=== PATIENT | male | born 1965 | race Caucasian/White ===

== ENCOUNTER 2016-10-20 18:10 | Inpatient (IN) | payer BC ==
[~2016-10-20] VITALS: Ht 177.8 cm; Wt 99.9 kg
[2016-10-20] MEDS ORDERED: ONDANSETRON INJ 2 MG/ML 2 ML VIAL IV STA (18:21)
[2016-10-20] MEDS ORDERED: SODIUM CHLORIDE 0.9% 1000ML 1,000 ML IV STA (18:21)
[2016-10-20] MEDS ORDERED: ASPIRIN 81 MG CHEW PO STA (18:21)
--- NOTE | 2016-10-20 18:29 | EMERGENCY ROOM VISIT NOTE ---
History Report prepared by Emma: Janelle Dudley Under the Supervision of: Dr. Bruce Lozano D.O. First contact with patient: 18:15 Chief Complaint: CHEST PAIN Stated Complaint: CHEST PAIN, HEAD PAIN History of Present Illness The patient is a 51 year old male who presents to the Emergency Room with complaints of constant chest pain beginning 1 hour ago. The patient states that he was cutting trees down and was moving limbs when the pain began. He notes that he was exerting himself and was sweating. He reports that the pain radiates from his chest into his right arm and notes that he has a right sided head ache. He denies any neck pain, back pain, shortness of breath, leg pain or swelling, recent procedures, recent traveling, and history of stress test. He notes that he has no known medical history and has no previous surgeries or history of cancer. The patient reports that he has fluctuating blood pressure but is not on medications. Source of History: patient Onset: 1 hour ago Position: chest Timing: constant Associated Symptoms: + headache, No SOB, No back pain, No neck pain Note: Pt has right arm pain. Denies any leg pain or swelling. Review of Systems See HPI for pertinent positives & negatives. A total of 10 systems reviewed and were otherwise negative. Past Medical & Surgical Medical Problems: (1) Chest pain in adult (2) No Known Active Medical Problems Family History No pertinent family history stated. Social History Smoking Status: Current Every Day Smoker Marital Status: Housing Status: lives with significant other Occupation Status: employed Current/Historical Medications No Active Prescriptions or Reported Meds Allergies Coded Allergies: Penicillins (Verified Allergy, Unknown, 06/29/09) Physical Exam Vital Signs Date Time Temp Pulse Resp B/P Pulse Ox O2 Delivery O2 Flow Rate FiO2 10/20/16 20:13 78 18 136/92 94 Room Air 10/20/16 19:42 92 17 145/93 94 Room Air 10/20/16 19:39 83 18 150/100 97 Room Air 10/20/16 19:09 85 10/20/16 18:58 84 20 160/104 95 Room Air 10/20/16 18:31 96 Room Air 10/20/16 18:31 96 Room Air 10/20/16 18:11 36.7 95 18 144/98 96 Room Air Physical Exam GENERAL: Patient is awake, alert, very anxious appearing, appears to be in pain. EYES: The conjunctivae are clear. The pupils are round and reactive. EARS, NOSE, MOUTH AND THROAT: The nose is without any evidence of any deformity. Mucous membranes are moist tongue is midline NECK: The neck is nontender and supple. RESPIRATORY: Normal respiratory effort is noted there is no evidence of wheezing rhonchi or rales CARDIOVASCULAR: Regular rate and rhythm noted there no murmurs rubs or gallops normal S1 normal S2 GASTROINTESTINAL: The abdomen is soft. Bowel sounds are present in all quadrants. Abdomen is nontender MUSCULOSKELETAL/EXTREMITIES: There is no evidence of gross deformity full range of motion is noted in the hips and shoulders SKIN: There is no obvious evidence of any rash. There are no petechiae, pallor or cyanosis noted. Pulses were symmetric. NEUROLOGIC: Patient is awake alert and oriented x3 Medical Decision & Procedures ER Provider Diagnostic Interpretation: Radiology results as stated below per my review and radiologist interpretation: CHEST ONE VIEW PORTABLE FINDINGS: The lung volumes are normal. No pneumothorax or pleural effusion is present. Minimal left basilar opacity suggests atelectasis. There is no consolidation to suggest pneumonia. Pulmonary vascularity is normal. Cardiomediastinal silhouette is normal. IMPRESSION: No acute cardiopulmonary findings. Electronically signed by: Adalid Diallo M.D. 10/20/2016 6:44 PM Dictated Date/Time: 10/20/2016 6:[address] OF THE HEAD WITHOUT CONTRAST FINDINGS: No acute intracranial hemorrhage, midline shift or mass effect is present. Brain volume is normal. Ventricular system is normal. Basilar cisterns are patent. There are no extra-axial collections. Wilson-white differentiation is maintained. There are no findings to suggest acute dural sinus thrombosis or acute territorial infarct. There is minimal bilateral basal ganglia calcification. No calvarial abnormalities are evident. There is minimal mucosal thickening of the ethmoid sinuses. Mastoid air cells are clear. IMPRESSION: No acute intracranial findings. Electronically signed by: Adalid Diallo M.D. 10/20/2016 6:58 PM Dictated Date/Time: 10/20/2016 6:53 PM Laboratory Results 10/20/16 18:30 Red Blood Count 5.48, Mean Corpuscular Volume 89.6, Mean Corpuscular Hemoglobin 30.5, Mean Corpuscular Hemoglobin Concent 34.0, Mean Platelet Volume 9.2, Neutrophils (%) (Auto) 76.2, Lymphocytes (%) (Auto) 15.1, Monocytes (%) (Auto) 7.3, Eosinophils (%) (Auto) 0.7, Basophils (%) (Auto) 0.3, Neutrophils # (Auto) 13.75, Lymphocytes # (Auto) 2.72, Monocytes # (Auto) 1.32, Eosinophils # (Auto) 0.12, Basophils # (Auto) 0.05 10/20/16 18:30 Test 10/20/16 18:30 10/20/16 19:59 White Blood Count 18.04 K/uL (4.8-10.8) Red Blood Count 5.48 M/uL (4.7-6.1) Hemoglobin 16.7 g/dL (14.0-18.0) Hematocrit 49.1 % (42-52) Mean Corpuscular Volume 89.6 fL (80-100) Mean Corpuscular Hemoglobin 30.5 pg (25-34) Mean Corpuscular Hemoglobin Concent 34.0 g/dl (32-36) Platelet Count 311 K/uL (130-400) Mean Platelet Volume 9.2 fL (7.4-10.4) Neutrophils (%) (Auto) 76.2 % Lymphocytes (%) (Auto) 15.1 % Monocytes (%) (Auto) 7.3 % Eosinophils (%) (Auto) 0.7 % Basophils (%) (Auto) 0.3 % Neutrophils # (Auto) 13.75 K/uL (1.4-6.5) Lymphocytes # (Auto) 2.72 K/uL (1.2-3.4) Monocytes # (Auto) 1.32 K/uL (0.11-0.59) Eosinophils # (Auto) 0.12 K/uL (0-0.5) Basophils # (Auto) 0.05 K/uL (0-0.2) RDW Standard Deviation 43.8 fL (36.4-46.3) RDW Coefficient of Variation 13.4 % (11.5-14.5) Immature Granulocyte % (Auto) 0.4 % Immature Granulocyte # (Auto) 0.08 K/uL (0.00-0.02) Erythrocyte Sedimentation Rate 10 mm/hr (0-14) Prothrombin Time 11.3 SECONDS (9.0-12.0) Prothromb Time International Ratio 1.1 (0.9-1.1) Activated Partial Thromboplast Time 25.2 SECONDS (21.0-31.0) Partial Thromboplastin Ratio 1.0 D-Dimer 320 ug/L FEU (0-500) Anion Gap 9.0 mmol/L (3-11) Est Creatinine Clear Calc Drug Dose 80.1 ml/min Estimated GFR () 73.7 Estimated GFR (Non- 63.6 BUN/Creatinine Ratio 14.8 (10-20) Calcium Level 9.0 mg/dl (8.5-10.1) Total Bilirubin 0.5 mg/dl (0.2-1) Direct Bilirubin < 0.1 mg/dl (0-0.2) Aspartate Amino Transf (AST/SGOT) 26 U/L (15-37) Alanine Aminotransferase (ALT/SGPT) 38 U/L (12-78) Alkaline Phosphatase 82 U/L (45-117) Total Creatine Kinase 435 U/L (39-308) Creatine Kinase MB 3.0 ng/ml (0.5-3.6) Creatine Kinase MB Ratio 0.7 (0-3.0) Troponin I < 0.015 ng/ml (0-0.045) Total Protein 8.0 gm/dl (6.4-8.2) Albumin 4.4 gm/dl (3.4-5.0) Lipase 156 U/L (73-393) Lyme Disease IgG Antibody NEG (NEG) Lyme Disease IgM Antibody NEG (NEG) Bedside Troponin I 0.040 ng/ml (0-0.045) Laboratory results per my review. Medications Administered Medications (Trade) Dose Ordered Sig/Thi Route Start Time Stop Time Status Last Admin Dose Admin Aspirin (Aspirin Chew) 324 mg NOW STAT PO 10/20/16 18:21 10/20/16 18:23 DC 10/20/16 18:34 324 MG Morphine Sulfate (MoRPHine SULFATE INJ) 4 mg Q15M PRN IV 10/20/16 18:30 10/20/16 21:21 DC 10/20/16 18:33 4 MG Ondansetron HCl 4 mg 4 mg NOW STAT IV 10/20/16 18:21 10/20/16 18:23 DC 10/20/16 18:33 4 MG Sodium Chloride (Nss 1000ml) 1,000 ml @ 250 mls/hr Q4H STAT IV 10/20/16 18:21 10/20/16 22:20 DC 10/20/16 18:34 250 MLS/HR Nitroglycerin (Nitrostat Tab) 0.4 mg Q5M PRN SL 10/20/16 19:45 10/20/16 21:43 DC 10/20/16 19:39 0.4 MG ECG Indication: chest pain Rate (beats per minute): 84 Rhythm: normal sinus Findings: no ectopy, other (no st segment abnormalities) Comparison ECG Date: 12/27/10 Change: no significant change Change: EKG#2: Normal Sinus, 76, no ectopy, no ST segment abnormalities, no change when compared to previous. ED Course 1814: The patient was evaluated in room C3. A complete history and physical examination were performed. 1820: NSS 1,000 ml @ 250 mls/hr IV, Zofran Inj 4mg IV, Aspirin Chew 324mg PO. 1829: Morphine Sulfate 4mg PRN IV pain. 1944: Nitroglycerin 0.4mg PRN SL pain. 1958: I reevaluated the patient. He feels better after NTG. 1920: I reevaluated and updated the patient. 2031: I spoke to Dr. Lloyd of [facility]. I discussed the patient's case with her. The patient will be evaluated for further management. 2054: Upon reevaluation, the patient is doing well. I discussed results and treatment plan with the patient. He verbalizes agreement and understanding. I spoke with the resident, Dr. Lloyd of the [facility]. The patient will be evaluated for further management and care. Medical Decision Differential diagnosis: Etiologies such as cardiac ischemia, aortic dissection, pulmonary embolism, pneumonia, pneumothorax, musculoskeletal, infections, pericarditis, myocarditis , esophageal rupture, gastrointestinal, as well as others were entertained. Nursing notes reviewed. The patient is a 51-year-old male who presented to the emergency department for an evaluation of chest pain after exertional activity. The patient's EKG did not show any acute change from previous. His initial troponin was not elevated but his repeat troponin did show a slight elevation. The patient was treated with aspirin and nitroglycerin and morphine in saline solution in the emergency department. On subsequent reevaluation he was feeling much better. I discussed the patient's laboratory and radiographic studies with him. I also discussed the limitations of the emergency department workup for chest pain with him. Given the patient's abnormal laboratory studies I discussed his case with the on -call [facility] hospitalist group. They've agreed to evaluate the patient in the emergency apartment for further management and disposition. Consults Time Called: 2029 Consulting Physician: Dr. Lloyd - Resident, [facility] Returned Call: [address] Lloyd of [facility]. I discussed the patient's case with her. The patient will be evaluated for further management. Impression Primary Impression: Exertional chest pain Additional Impressions: Left sided chest pain Elevated troponin Headache Scribe Attestation The scribe's documentation has been prepared under my direction and personally reviewed by me in its entirety. I confirm that the note above accurately reflects all work, treatment, procedures, and medical decision making performed by me. Departure Information Prescriptions No Active Prescriptions or Reported Meds Referrals Rudolph Kim M.D. (PCP) Patient Instructions My [facility] Problem Qualifiers
[2016-10-20] MEDS ORDERED: MoRPHine SULFATE 4 MG/ML 1 ML CARP\\VIAL IV PRN (18:30)
[2016-10-20 18:42] LABS: BASO % 0.3 %; BASO ABS # 0.05 K/uL (0-0.2); COMPLETE YES; EOS % 0.7 %; HEMATOCRIT 49.1 % (42-52); IG% 0.4 %; LYMPH % 15.1 %; LYMPH ABS # 2.72 K/uL (1.2-3.4); MEAN CELL VOLUME 89.6 fL (80-100); MEAN CORPUSCULAR HEMOGLOBIN 30.5 pg (25-34); MEAN PLATELET VOLUME 9.2 fL (7.4-10.4); MONO % 7.3 %; NEUT % 76.2 %; PLATELET COUNT 311 K/uL (130-400); RED BLOOD COUNT 5.48 M/uL (4.7-6.1); WHITE BLOOD COUNT 18.04 K/uL (4.8-10.8)
--- NOTE | 2016-10-20 18:45 | DIAGNOSTIC IMAGING REPORT ---
CHEST ONE VIEW PORTABLE CLINICAL HISTORY: Chest pain. COMPARISON STUDY: Chest radiograph December 27, 2010. FINDINGS: The lung volumes are normal. No pneumothorax or pleural effusion is present. Minimal left basilar opacity suggests atelectasis. There is no consolidation to suggest pneumonia. Pulmonary vascularity is normal. Cardiomediastinal silhouette is normal. IMPRESSION: No acute cardiopulmonary findings. Electronically signed by: Adalid Diallo M.D. 10/20/2016 6:44 PM Dictated Date/Time: 10/20/2016 6:42 PM
[2016-10-20 18:51] LABS: INR 1.1 (0.9-1.1); PROTHROMBIN TIME (PATIENT) 11.3 SECONDS (9.0-12.0)
[2016-10-20 18:59] LABS: ALT/SGPT 38 U/L (12-78); AST/SGOT 26 U/L (15-37); BLOOD UREA NITROGEN 19 mg/dl (7-18); BUN/CREATININE RATIO 14.8 (10-20); CARBON DIOXIDE 23 mmol/L (21-32); CHLORIDE 108 mmol/L (98-107); GLUCOSE 130 mg/dl (70-99); POTASSIUM 4.2 mmol/L (3.5-5.1); SODIUM 140 mmol/L (136-145)
--- NOTE | 2016-10-20 18:59 | DIAGNOSTIC IMAGING REPORT ---
CT OF THE HEAD WITHOUT CONTRAST CLINICAL HISTORY: Right-sided headache. COMPARISON STUDY: No previous studies for comparison. CT DOSE: 537.48 mGy.cm TECHNIQUE: Helical axial images of the head were obtained without IV contrast. Automated exposure control was utilized for the study. FINDINGS: No acute intracranial hemorrhage, midline shift or mass effect is present. Brain volume is normal. Ventricular system is normal. Basilar cisterns are patent. There are no extra-axial collections. Wilson-white differentiation is maintained. There are no findings to suggest acute dural sinus thrombosis or acute territorial infarct. There is minimal bilateral basal ganglia calcification. No calvarial abnormalities are evident. There is minimal mucosal thickening of the ethmoid sinuses. Mastoid air cells are clear. IMPRESSION: No acute intracranial findings. Electronically signed by: Adalid Diallo M.D. 10/20/2016 6:58 PM Dictated Date/Time: 10/20/2016 6:53 PM
[2016-10-20 19:05] LABS: ALKALINE PHOSPHATASE 82 U/L (45-117); CKMB/CK RATIO 0.7 (0-3.0)
[2016-10-20] MEDS ORDERED: NITROGLYCERIN 0.4 MG SL PER TAB CHARGE SL PRN ×2 (19:45→21:15)
[2016-10-20] MEDS ORDERED: ONDANSETRON INJ 2 MG/ML 2 ML VIAL IV PRN (21:15)
[2016-10-20] MEDS ORDERED: POLYETHYLENE (MIRALAX) 17 GM PACK PO PRN (21:15)
[2016-10-20] MEDS ORDERED: MoRPHine SULFATE 2 MG/ML CARP IV PRN (21:15)
[2016-10-20] MEDS ORDERED: ZOLPIDEM TARTRATE 5 MG TAB PO PRN (21:15)
[2016-10-20 21:44] VITALS: Ht 177.8 cm; Wt 99.9 kg
[2016-10-20] MEDS ORDERED: IV FLUIDS COMPLETED PRN (21:45)
[2016-10-20] MEDS ORDERED: HEPARIN 25000 UNIT/500 ML D5W ONE (21:46)
[2016-10-20 21:59] VITALS: O2SAT 93
[2016-10-20] MEDS: SODIUM CHLORIDE 0.9% 1000ML 1,000 ML IV SCH (22:30)
--- NOTE | 2016-10-20 22:33 | History and Physical ---
History & Physical Date & Time of Service: October 20, 2016 at 22:21 Chief Complaint: Chest Pain In Adult Primary Care Physician: Rudolph Kim M.D. History of Present Illness Source: patient, clinic records, hospital records This is a 51 yo m that is presenting to us after an acute onset of substernal chest pain and right sided temporal pain. The chest pain started at approx 1600 when he was working outside chopping wood. It started substernally and radiated to the left arm and to the left pinky and ring finger. It was a sharp pain that worsened with laying down and a 9/10. It is currently a 0/10 after receiving NTG x 1 and morphine. He did received ASA in the ED. During this episode of pain he was having right temporal pain and hypoesthesia without blurry vision. The pain was constant until he arrived to the ED and received his medications. He notes that while he was at home he tried to shower but was consistently diaphoretic however no nausea. He had pain like this before a year ago that he "waited out" but felt like he shouldn't wait this one out. Patient smokes 1 PPD > 30 years. He has never had an MA/ TIA or stroke. His father has a history of stroke secondary to a "hole in his heart" as well as DM. Past Medical/Surgical History no significant PMHx Family History Diabetes mellitus FATHER Stroke FATHER Social History Smoking Status: Current Every Day Smoker Smokeless Tobacco Use: No Alcohol Use: occasionally Drug Use: none Marital Status: Housing status: lives with family Occupational Status: employed Immunizations History of Tetanus Vaccine?: YES,08/17/04 History of Pneumococcal: No History of Hepatitis B Vaccine: No Multi-Drug Resistant Organisms History of MDRO: No Allergies Coded Allergies: Penicillins (Verified Allergy, Unknown, 06/29/09) Home Medications No Active Prescriptions or Reported Meds Review of Systems Constitutional: No chills, No fever Respiratory: No cough, No dyspnea at rest, No dyspnea on exertion, No shortness of breath, No sputum, No wheezing Cardiovascular: + chest pain Abdomen: No diarrhea, No nausea, No pain Musculoskeletal: No joint pain, No muscle pain Genitourinary - Male: No dysuria, No hematuria Neurologic: + numbness/tingling (asd above), No balance problems, No weakness Psychiatric: No depression symptoms Endocrine: No fatigue Hematologic / Lymphatic: No abnormal bleeding/bruising Integumentary: No rash Physical Exam Vital Signs Date Time Temp Pulse Resp B/P Pulse Ox O2 Delivery O2 Flow Rate FiO2 10/20/16 21:59 76 18 147/87 93 10/20/16 21:44 Room Air 10/20/16 21:16 86 18 148/90 95 Room Air 10/20/16 20:13 78 18 136/92 94 Room Air 10/20/16 19:42 92 17 145/93 94 Room Air 10/20/16 19:39 83 18 150/100 97 Room Air 10/20/16 19:09 85 10/20/16 18:58 84 20 160/104 95 Room Air 10/20/16 18:31 96 Room Air 10/20/16 18:31 96 Room Air 10/20/16 18:11 36.7 95 18 144/98 96 Room Air General Appearance: no apparent distress Head: normocephalic, atraumatic Eyes: normal inspection ENT: normal ENT inspection Neck: supple Respiratory/Chest: normal breath sounds, no respiratory distress, no accessory muscle use Cardiovascular: regular rate, rhythm, no murmur Abdomen/GI: normal bowel sounds, non tender, soft Back: normal inspection Extremities/Musculoskelatal: normal inspection, no calf tenderness, no pedal edema Neurologic/Psych: alert, normal mood/affect, oriented x 3 Skin: normal color, warm/dry, no rash Lymphatic: no adenopathy Diagnostics Laboratory Results Results Past 24 Hours Test 10/20/16 18:30 10/20/16 19:59 Range/Units White Blood Count 18.04 4.8-10.8 K/uL Red Blood Count 5.48 4.7-6.1 M/uL Hemoglobin 16.7 14.0-18.0 g/dL Hematocrit 49.1 42-52 % Mean Corpuscular Volume 89.6 80-100 fL Mean Corpuscular Hemoglobin 30.5 25-34 pg Mean Corpuscular Hemoglobin Concent 34.0 32-36 g/dl Platelet Count 311 130-400 K/uL Mean Platelet Volume 9.2 7.4-10.4 fL Neutrophils (%) (Auto) 76.2 % Lymphocytes (%) (Auto) 15.1 % Monocytes (%) (Auto) 7.3 % Eosinophils (%) (Auto) 0.7 % Basophils (%) (Auto) 0.3 % Neutrophils # (Auto) 13.75 1.4-6.5 K/uL Lymphocytes # (Auto) 2.72 1.2-3.4 K/uL Monocytes # (Auto) 1.32 0.11-0.59 K/uL Eosinophils # (Auto) 0.12 0-0.5 K/uL Basophils # (Auto) 0.05 0-0.2 K/uL RDW Standard Deviation 43.8 36.4-46.3 fL RDW Coefficient of Variation 13.4 11.5-14.5 % Immature Granulocyte % (Auto) 0.4 % Immature Granulocyte # (Auto) 0.08 0.00-0.02 K/uL Prothrombin Time 11.3 9.0-12.0 SECONDS Prothromb Time International Ratio 1.1 0.9-1.1 Activated Partial Thromboplast Time 25.2 21.0-31.0 SECONDS Partial Thromboplastin Ratio 1.0 D-Dimer 320 0-500 ug/L FEU Sodium Level 140 136-145 mmol/L Potassium Level 4.2 3.5-5.1 mmol/L Chloride Level 108 98-107 mmol/L Carbon Dioxide Level 23 21-32 mmol/L Anion Gap 9.0 3-11 mmol/L Blood Urea Nitrogen 19 7-18 mg/dl Creatinine 1.30 0.60-1.40 mg/dl Est Creatinine Clear Calc Drug Dose 80.1 ml/min Estimated GFR () 73.7 Estimated GFR (Non- 63.6 BUN/Creatinine Ratio 14.8 10-20 Random Glucose 130 70-99 mg/dl Calcium Level 9.0 8.5-10.1 mg/dl Total Bilirubin 0.5 0.2-1 mg/dl Direct Bilirubin < 0.1 0-0.2 mg/dl Aspartate Amino Transf (AST/SGOT) 26 15-37 U/L Alanine Aminotransferase (ALT/SGPT) 38 12-78 U/L Alkaline Phosphatase 82 45-117 U/L Total Creatine Kinase 435 39-308 U/L Creatine Kinase MB 3.0 0.5-3.6 ng/ml Creatine Kinase MB Ratio 0.7 0-3.0 Troponin I < 0.015 0-0.045 ng/ml Total Protein 8.0 6.4-8.2 gm/dl Albumin 4.4 3.4-5.0 gm/dl Lipase 156 73-393 U/L Bedside Troponin I 0.040 0-0.045 ng/ml Diagnostic Radiology [~ rep ct add3]] CHEST ONE VIEW PORTABLE CLINICAL HISTORY: Chest pain. COMPARISON STUDY: Chest radiograph December 27, 2010. FINDINGS: The lung volumes are normal. No pneumothorax or pleural effusion is present. Minimal left basilar opacity suggests atelectasis. There is no consolidation to suggest pneumonia. Pulmonary vascularity is normal. Cardiomediastinal silhouette is normal. IMPRESSION: No acute cardiopulmonary findings. CT OF THE HEAD WITHOUT CONTRAST CLINICAL HISTORY: Right-sided headache. COMPARISON STUDY: No previous studies for comparison. CT DOSE: 537.48 mGy.cm TECHNIQUE: Helical axial images of the head were obtained without IV contrast. Automated exposure control was utilized for the study. FINDINGS: No acute intracranial hemorrhage, midline shift or mass effect is present. Brain volume is normal. Ventricular system is normal. Basilar cisterns are patent. There are no extra-axial collections. Wilson-white differentiation is maintained. There are no findings to suggest acute dural sinus thrombosis or acute territorial infarct. There is minimal bilateral basal ganglia calcification. No calvarial abnormalities are evident. There is minimal mucosal thickening of the ethmoid sinuses. Mastoid air cells are clear. IMPRESSION: No acute intracranial findings. EKG NSR 70 no ectopy or ischemic changes WTc 433 Impression Assessment and Plan This is a 51 yo m who presented to the ED with acute onset chest pain and right temporal pain,. Story is very concerning for a NSTEMI so patient will stay overnight for observation. Right temporal pain is concerning for possible temporal arteritis however pain coincided with the chest pain? Chest pain NYD - tele obs - troponin trend - will start on heparin as patient does have a convincing story - stress echo in the am - received NTG, morphine and ASA in the ED - NPO after midnight - FLP Right Temporal pain - ESR - Consider an MRI in the am based on results of tests Hyperglycemia - HBA1C - patient does not visit PCP on a regular basis DVT Prophylaxis - heparin FULL CODE Level of Care Telemetry Advanced Directives Existing Living Will: No Existing Power of B Operator: No Resuscitation Status FULL RESUSCITATION VTE Prophylaxis VTE Risk Assessment Done? Y/N: Yes Risk Level: Moderate Given or contraindicated: Unfractionated heparin SQ Social Service Consult None Apply Note Total Time: Critical Care 30 - 74 minutes Additional Copies To Rudolph Kim M.D. Assessment and Plan Attending Addendum: I have physically seen and examined this patient, have directed their medical care, have supervised the medical residents activities, and agree with the H&P as noted above, with the following changes: NONE
[2016-10-20 22:57] LABS: LYME DISEASE AB IGG NEG (NEG); LYME DISEASE AB IGM NEG (NEG)
[2016-10-21] VITALS (14 sets, daily range): BP systolic 109–149; BP diastolic 62–84; PULSE 57–97; TEMP 36.4–36.9; O2SAT 93–98
[2016-10-21 04:02] LABS: PARTIAL THROMBOPLASTIN RATIO 1.4
[2016-10-21 04:38] LABS: CHOLESTEROL/HDL RATIO 6.2
[2016-10-21] MEDS ORDERED: HEPARIN IV BOLUS 7,000 UNIT in SYRINGE 0 ML IV STA (04:45)
[2016-10-21 05:18] LABS: URINE APPEARANCE CLEAR (CLEAR); URINE BILIRUBIN NEG (NEG); URINE COLOR DK YELLOW; URINE NITRITE NEG (NEG); URINE SPECIFIC GRAVITY 1.028 (1.000-1.030); UROBILINOGEN NEG (NEG); ZZUR CULT IF INDIC CLEAN CATCH NO
[2016-10-21 05:33] LABS: MANUAL MICROSCOPIC REQUIRED? NO; REVIEW REQ? NO
[2016-10-21] MEDS: ATORVASTATIN 40 MG TAB PO SCH (07:50)
[2016-10-21] MEDS: LISINOPRIL 5 MG TAB PO SCH (07:50)
[2016-10-21 08:45] LABS: ESTIMATED AVERAGE GLUCOSE 123 mg/dl; HA1C FLAG Normal (Normal)
--- NOTE | 2016-10-21 09:31 | Procedure Note ---
Pre-Mod Sedation Assessment General Date of Moderate Sedation: October 21, 2016. Vital Signs: Vital Signs Past 12 Hours Date Time Temp Pulse Resp B/P Pulse Ox O2 Delivery O2 Flow Rate FiO2 10/21/16 08:18 36.5 73 18 124/78 97 10/21/16 08:00 Room Air 10/21/16 04:13 36.6 97 18 128/82 93 Room Air 10/21/16 04:00 Room Air 10/21/16 00:06 36.9 71 17 122/62 96 Room Air 10/21/16 00:00 Room Air 10/20/16 21:59 76 18 147/87 93 10/20/16 21:44 Room Air Review Cardiovascular: regular rate, rhythm, no edema, no gallop, no JVD, no murmur, normal peripheral pulses Abdomen: normal bowel sounds, non tender, soft, no pulsatile mass Lungs: lungs clear Pre-Sedation Airway Assessment Oral Cavity: WNL Able to Visualize Vocal Cords: No Short Thick Neck: No Hx of Sleep Apnea: No Smoking Status: Current Every Day Smoker ASA Classification: Class III Procedure Planning Contraindications-for Mod Sed: None Yes Notes The planned sedation has been discussed with the patient and consent obtained. I have identified the patient, determined the appropriateness of sedation and have assessed the patient immediately prior to the procedure. All medicine(s) and interventions are by my order.
[2016-10-21] MEDS: SODIUM CHLORIDE 0.9% 1000ML 1,000 ML IV SCH (10:07)
--- NOTE | 2016-10-21 10:19 | CARDIOLOGY CONSULTATION ---
DATE OF CONSULTATION: 10/21/2016 PRIMARY PHYSICIAN: Rudolph Kim MD ATTENDING AND REFERRING PHYSICIAN: Kamran Fajardo MD CONSULTING PHYSICIAN: Joey Becerra MD HISTORY OF PRESENT ILLNESS: The patient is a 51-year-old white male. No prior history of any chronic medical illnesses. Specifically, no history of any heart disease, dyslipidemia, or diabetes mellitus. No history of hypertension as an adult. He states that as a teenager, he did have labile hypertension. At the time of admission, he was not being treated for any chronic medical illnesses. The patient is very active. 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 On October 20, he began cutting wood with a chainsaw at approximately 07:00 a.m. He states he works throughout the day. Yesterday afternoon at approximately 04:30 p.m., while cutting wood, he developed a retrosternal chest tightness. Radiation to the right side of his neck and jaw. Radiation down the inner aspect of his left arm all the way to his fingers. He had associated weakness, nausea, and diaphoresis. The discomfort persisted. His drove him to the [facility] Emergency Department. He states that the discomfort was ultimately relieved in the Emergency Department with sublingual nitroglycerin. Since then, he has had no reoccurrence of the chest discomfort. No jaw or arm discomfort since admission. He states that recently, he has not been experiencing any exertionally precipitated chest pain. Yesterday afternoon was the first episode. Also, he had not been experiencing any jaw or arm discomfort prior to yesterday afternoon. He does note that over the past 3 months, he has had increased fatigue. No dyspnea at rest. No dyspnea with his normal activities. Stable dyspnea with vigorous exertion. No orthopnea or PND. No palpitations, lightheadedness, syncope, or peripheral edema. PAST MEDICAL HISTORY: 1. Labile hypertension as a teenager. 2. Admission for left leg cellulitis on 08/19/2004. PAST SURGICAL HISTORY: Status post wisdom teeth removal. MEDICATIONS AT TIME OF ADMISSION: None. CURRENT MEDICATIONS: Lisinopril 5 mg daily, metoprolol succinate ER 12.5 mg daily, atorvastatin 80 mg daily, and intravenous heparin weight based protocol. The patient received 324 mg of aspirin on the evening of October 20. ALLERGIES AND ADVERSE DRUG REACTIONS: PENICILLIN. SOCIAL HISTORY: The patient lives with his . 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 He has no biologic children. He does have stepchildren. He smokes up to 1 pack of cigarettes a day. He has smoked cigarettes since age 22. Occasional use of alcohol. FAMILY HISTORY: He states his father had a myocardial infarction at age 21. His father at age 63. His father had a history of coronary artery stents. He also had a history of cerebrovascular disease and diabetes mellitus. His mother is alive and well at age 69. Three siblings. No known heart disease in them. There is a strong family history of coronary artery disease on his father's side. REVIEW OF SYSTEMS: 1. As above. 2. No cerebrovascular or peripheral vascular complaints. 3. No bleeding complaints. 4. No pulmonary, GI, or urinary complaints independent of the nausea with his chest discomfort yesterday. 5. No skin rash complaints. 6. Occasional discomfort in the right foot. He states he sustained a crush injury to his right foot in the past. 7. No fevers or chills. 8. No history of sleep apnea. 9. No HEENT complaints. PHYSICAL EXAMINATION: GENERAL: The patient is sitting up in his bed. No distress. VITAL SIGNS: This morning with oral temperature of 36.5, pulse 73, and blood pressure 124/78. Pulse oximetry 97%. GENERAL APPEARANCE: Shows him to be in no distress. HEAD: Normal. EYES: Pupils equal and round. Anicteric. Conjunctivae normal. No xanthelasma. NECK: No jugular venous distension. Carotids 2/2 bilaterally. Normal upstroke. No bruits. LUNGS: Normal respiratory effort. Clear. No rales or wheezes. HEART: PMI normal. No lifts or heaves. Regular rate and rhythm. S1 and S2 normal. No S3 or S4. No murmur or rub. ABDOMEN: Soft. Nontender. No palpable masses. No organomegaly. Normal bowel sounds. No bruits. EXTREMITIES: No pretibial edema. No cyanosis or clubbing. PULSES: Radial pulses, femoral pulses, dorsalis pedis, and posterior tibial pulses strongly palpable bilaterally. No femoral bruits. NEUROLOGICAL: Alert and oriented x3. Motor grossly intact. PSYCHIATRIC: Affect is normal. DIAGNOSTIC DATA: Chest x-ray performed on October 20 and reviewed by me shows no evidence of heart failure or infiltrate. Head CT scan performed on October 20 without any acute intracranial process. Electrocardiogram, October 20 at 06:21 p.m. revealed normal sinus rhythm. Sinus arrhythmia. Normal ST segments and T waves. Electrocardiogram done at 07:56 p.m. on October [address] segments and T waves. LABORATORY DATA: Labs on October 20, WBC 18.04, hemoglobin 16.7, hematocrit 49.1, and platelet count 311. Baseline INR 1.1. PTT 25.2. PTT at 03:35 a.m. this morning is 35.6. Hemoglobin A1c 5.9. Initial troponin I yesterday evening was less than 0.015. At 03:35 a.m. today, it is 1.450. Lipid profile with triglycerides 214, total cholesterol 217, calculated LDL 139, and HDL 35. Metabolic profile with sodium 140, potassium 4.2, chloride 108, carbon dioxide 23, BUN 19, creatinine 1.30, and random glucose 130. CK total on admission was 435. MB 3.0. AST and ALT normal. Assessment for Lyme disease, IgG and IgM antibodies on October 20 negative. ASSESSMENT: 1. Non-ST elevation myocardial infarction. Prolonged episode of chest tightness on October 20. Radiation to right neck, jaw and face. Radiation of pain down the inner aspect of the left arm. Associated nausea, diaphoresis, and weakness. Electrocardiogram without any diagnostic ischemic ST or T-wave abnormalities. Troponin I has significantly elevated early this morning. No anginal symptoms since admission. 2. Coronary artery disease risk factors would include family history of coronary artery disease, intermediate smoking history, dyslipidemia, and an elevated hemoglobin A1c. 3. No evidence of heart failure. 4. No arrhythmias. 5. Blood pressure well controlled this morning. RECOMMENDATIONS AND PLAN: 1. It has been recommended to the patient to undergo diagnostic cardiac catheterization. The procedure, risk, and benefits were extensively discussed with the patient by me. He consents to the procedure. The procedure, risk, benefits, and alternatives of cardiac catheterization and PCI were discussed by me. He is aware of the nature of the [facility] PCI program with offsite CABG surgical backup. He consents to have the procedure performed at [facility]. 2. Continue metoprolol, lisinopril, atorvastatin, and intravenous heparin. 3. Aspirin today and daily aspirin. 4. Continue n.p.o. except for sips of water. 5. Would not give clopidogrel at this time. It is possible that the patient could have coronary pathology that would require CABG surgery. Certainly, if he has a stent procedure, he will then be placed on dual antiplatelet therapy thereafter. Thank you for asking us to see this patient in cardiology consultation.
[2016-10-21] MEDS: METOPROLOL SUCC 25MG EXT REL TAB PO SCH (10:31)
[2016-10-21 11:21] LABS: PARTIAL THROMBOPLASTIN RATIO 2.8
[2016-10-21] MEDS: HEPARIN 25,000 UNIT/500ML D5W 500 ML IV PRN ×2 (11:45→14:20)
[2016-10-21] MEDS ORDERED: NURSING VERBAL MED ORDER ONE ×2 (13:00→18:45)
[2016-10-21] MEDS: ACETAMINOPHEN 325 MG TAB PO PRN ×2 (13:03→18:41)
--- NOTE | 2016-10-21 14:51 | Family Medicine Progress Note ---
Progress Note Date of Service October 21, 2016. Subjective Pt evaluation today including: conversation w/ patient, chart review, lab review, conversation w/ production support consultant, review of inpatient medication list Pain: none PO Intake: sips and chips Voiding: no voiding problems, no incontinence Patient with no acute events overnight He has denied any ongoing chest pain, neck pain, arm numbness/tingling, shortness of breath, cough, wheezing, leg swelling, pnd, fever, night sweats, abdominal pain, nausea, vomiting, diarrhea, constipation, headache, or visual changes He will be going for a cath either later today or tomorrow as he has been seen by Dr. Becerra Additional Comments: please see above for ROS Medications Current Inpatient Medications Medications (Trade) Dose Ordered Sig/Thi Route Start Time Stop Time Status Last Admin Dose Admin Sodium Chloride (Nss 1000ml) 1,000 ml @ 80 mls/hr [id number] IV 10/20/16 22:30 11/19/16 22:29 10/21/16 10:07 80 MLS/HR Zolpidem Tartrate (Ambien Tab) 5 mg HSZ PRN PO 10/20/16 21:15 11/19/16 21:14 Ondansetron HCl (Zofran Inj) 4 mg Q6H PRN IV 10/20/16 21:15 11/19/16 21:14 Nitroglycerin (Nitrostat Tab) 0.4 mg UD PRN SL 10/20/16 21:15 11/19/16 21:14 Morphine Sulfate (MoRPHine SULFATE INJ) 2 mg Q30M PRN IV 10/20/16 21:15 11/03/16 21:14 Polyethylene (Miralax Powder Packet) 17 gm DAILY PRN PO 10/20/16 21:15 11/19/16 21:14 Miscellaneous 1 ea 1 ea PRN PRN N/A 10/20/16 21:45 10/20/17 21:44 Heparin Sodium/ Dextrose (Heparin 25,000 Unit/500ml D5W) 500 ml @ 31 mls/hr Q16H8M PRN IV 10/20/16 22:00 11/19/16 21:59 10/21/16 14:20 31 MLS/HR Lisinopril (Zestril Tab) 5 mg QAM PO 10/21/16 09:00 11/20/16 08:59 10/21/16 07:50 5 MG Metoprolol Succinate (Toprol Xl Tab) 12.5 mg QAM PO 10/21/16 09:00 11/20/16 08:59 10/21/16 10:31 12.5 MG Atorvastatin Calcium (Lipitor Tab) 80 mg QAM PO 10/21/16 09:00 11/20/16 08:59 10/21/16 07:50 80 MG Acetaminophen (Tylenol Tab) 650 mg Q6H PRN PO 10/21/16 13:00 11/20/16 12:59 10/21/16 13:03 650 MG Objective Vital Signs Date Time Temp Pulse Resp B/P Pulse Ox O2 Delivery O2 Flow Rate FiO2 10/21/16 12:01 36.8 79 18 111/73 96 10/21/16 12:00 Room Air 10/21/16 08:18 36.5 73 18 124/78 97 10/21/16 08:00 Room Air 10/21/16 04:13 36.6 97 18 128/82 93 Room Air 10/21/16 04:00 Room Air 10/21/16 00:06 36.9 71 17 122/62 96 Room Air 10/21/16 00:00 Room Air 10/20/16 21:59 76 18 147/87 93 10/20/16 21:44 Room Air 10/20/16 21:16 86 18 148/90 95 Room Air 10/20/16 20:13 78 18 136/92 94 Room Air 10/20/16 19:42 92 17 145/93 94 Room Air 10/20/16 19:39 83 18 150/100 97 Room Air 10/20/16 19:09 85 10/20/16 18:58 84 20 160/104 95 Room Air 10/20/16 18:31 96 Room Air 10/20/16 18:31 96 Room Air 10/20/16 18:11 36.7 95 18 144/98 96 Room Air Physical Exam General Appearance: WD/WN, no apparent distress Neck: supple, no adenopathy, thyroid normal, no JVD, no carotid bruits Respiratory/Chest: chest non-tender, lungs clear, no accessory muscle use Cardiovascular: regular rate, rhythm, no JVD, no murmur Abdomen: normal bowel sounds, non tender, soft Extremities: normal range of motion, non-tender, normal inspection, no calf tenderness, normal capillary refill Neurologic/Psychiatric: alert, normal mood/affect, oriented x 3 Skin: normal color, warm/dry, no rash Laboratory Results Results Past 24 Hours Test 10/20/16 18:30 10/20/16 19:59 10/21/16 03:35 10/21/16 04:50 Range/Units White Blood Count 18.04 4.8-10.8 K/uL Red Blood Count 5.48 4.7-6.1 M/uL Hemoglobin 16.7 14.0-18.0 g/dL Hematocrit 49.1 42-52 % Mean Corpuscular Volume 89.6 80-100 fL Mean Corpuscular Hemoglobin 30.5 25-34 pg Mean Corpuscular Hemoglobin Concent 34.0 32-36 g/dl Platelet Count 311 130-400 K/uL Mean Platelet Volume 9.2 7.4-10.4 fL Neutrophils (%) (Auto) 76.2 % Lymphocytes (%) (Auto) 15.1 % Monocytes (%) (Auto) 7.3 % Eosinophils (%) (Auto) 0.7 % Basophils (%) (Auto) 0.3 % Neutrophils # (Auto) 13.75 1.4-6.5 K/uL Lymphocytes # (Auto) 2.72 1.2-3.4 K/uL Monocytes # (Auto) 1.32 0.11-0.59 K/uL Eosinophils # (Auto) 0.12 0-0.5 K/uL Basophils # (Auto) 0.05 0-0.2 K/uL RDW Standard Deviation 43.8 36.4-46.3 fL RDW Coefficient of Variation 13.4 11.5-14.5 % Immature Granulocyte % (Auto) 0.4 % Immature Granulocyte # (Auto) 0.08 0.00-0.02 K/uL Erythrocyte Sedimentation Rate 10 0-14 mm/hr Prothrombin Time 11.3 9.0-12.0 SECONDS Prothromb Time International Ratio 1.1 0.9-1.1 Activated Partial Thromboplast Time 25.2 35.6 21.0-31.0 SECONDS Partial Thromboplastin Ratio 1.0 1.4 D-Dimer 320 0-500 ug/L FEU Sodium Level 140 136-145 mmol/L Potassium Level 4.2 3.5-5.1 mmol/L Chloride Level 108 98-107 mmol/L Carbon Dioxide Level 23 21-32 mmol/L Anion Gap 9.0 3-11 mmol/L Blood Urea Nitrogen 19 7-18 mg/dl Creatinine 1.30 0.60-1.40 mg/dl Est Creatinine Clear Calc Drug Dose 80.1 ml/min Estimated GFR () 73.7 Estimated GFR (Non- 63.6 BUN/Creatinine Ratio 14.8 10-20 Random Glucose 130 70-99 mg/dl Calcium Level 9.0 8.5-10.1 mg/dl Total Bilirubin 0.5 0.2-1 mg/dl Direct Bilirubin < 0.1 0-0.2 mg/dl Aspartate Amino Transf (AST/SGOT) 26 15-37 U/L Alanine Aminotransferase (ALT/SGPT) 38 12-78 U/L Alkaline Phosphatase 82 45-117 U/L Total Creatine Kinase 435 39-308 U/L Creatine Kinase MB 3.0 0.5-3.6 ng/ml Creatine Kinase MB Ratio 0.7 0-3.0 Troponin I < 0.015 1.450 0-0.045 ng/ml Total Protein 8.0 6.4-8.2 gm/dl Albumin 4.4 3.4-5.0 gm/dl Lipase 156 73-393 U/L Lyme Disease IgG Antibody NEG NEG Lyme Disease IgM Antibody NEG NEG Bedside Troponin I 0.040 0-0.045 ng/ml Estimated Average Glucose 123 mg/dl Hemoglobin A1c 5.9 4.5-5.6 % Triglycerides Level 214 0-150 mg/dl Cholesterol Level 217 0-200 mg/dl HDL Cholesterol 35 mg/dl LDL Cholesterol, Calculated 139 mg/dl VLDL Cholesterol, Calculated 43 mg/dl Cholesterol/HDL Ratio 6.2 Urine Color DK YELLOW Urine Appearance CLEAR CLEAR Urine pH 5.0 4.5-7.5 Urine Specific Hayden 1.028 1.000-1.030 Urine Protein NEG NEG Urine Glucose (UA) NEG NEG Urine Ketones TRACE NEG Urine Occult Blood NEG NEG Urine Nitrite NEG NEG Urine Bilirubin NEG NEG Urine Urobilinogen NEG NEG Urine Leukocyte Esterase NEG NEG Test 10/21/16 10:33 10/21/16 13:47 Range/Units Activated Partial Thromboplast Time 72.7 21.0-31.0 SECONDS Partial Thromboplastin Ratio 2.8 Assessment and Plan This is a 51 yo m who presented to the ED with acute onset chest pain and right temporal pain. Patient with elevation in troponin, resolution of symptoms and normal EKG. Will go for cardiac catheterization for NSTEMI Chest pain NYD - tele - troponin trend, last trop 1.45 - patient started on heparin - patient going for catheterization - received NTG, morphine and ASA in the ED - sips and chips - continue atorvastatin, metoprolol and daily aspirin - if patient receives stent then will need dual antiplatelet therapy Right Temporal pain - ESR was 10 - pain resolved Hyperglycemia - HBA1C is 5.9 - patient does not visit PCP on a regular basis DVT Prophylaxis - heparin FULL CODE Continued [facility] stay due to: other Discharge planning: home Reviewed: Pt Seen/Exam by Me History no further chest pain Constitutional: denies: fever Respiratory: negative: short of breath Gastrointestinal/Abdominal: negative: abdominal pain General Appearance: no apparent distress Respiratory: lungs clear, no respiratory distress Cardiovascular: regular rate, rhythm Neurologic/Psychiatric: alert, oriented x 3 Skin Characteristics: warm/dry Assessment/Plan I have reviewed the medical record and performed a history and physical examination of this patient today. I have discussed the case with Dr. Cohen. The above note reflects my findings, conclusions, and recommendations.
--- NOTE | 2016-10-21 15:35 | ECHOCARDIOGRAM REPORT ---
*NOTICE TO RECEIVING DEMOCRAT AGENCY This information is strictly Confidential and protected under [place] law. [place] law prohibits you from making any further disclosure of this information unless further disclosure is expressly permitted by the written consent of the person to whom it pertains or is authorized by law. A general authorization for the release of medical or other information is not sufficient for this purpose. Hospital accepts no responsibility if the information is made available to any other person, INCLUDING THE PATIENT. Interpretation Summary * Name: ELLEN MAYS Study Date: 10/21/2016 06:33 AM BP: 128/82 mmHg * Patient Location: C.2T\S\S239\S\1 HR: 97 * : 1965 (M/d/yyyy) Gender: Male Height: 70 in * Age: 51 yrs Ethnicity: CA Weight: 217 lb * Ordering Physician: Tish Lloyd * Performed By: Senait Quintana * * Reason For Study: CHEST PAIN * BSA: 2.2 m2 * -- Conclusions -- * 1. Normal LV size and wall thickness. * 2. Normal LV systolic function. LVEF 55-60%. No regional wall motion abnormalities. * 3. Normal RV size and function. * 4. No significant valvular pathology. * 5. Normal estimated RA and PA pressures. * 6. No prior studies for comparison. Procedure Details * A complete two-dimensional transthoracic echocardiogram was performed (2D, M-mode, Doppler and color flow Doppler). Left Ventricle * The left ventricle is grossly normal size. * There is normal left ventricular wall thickness. * Ejection Fraction = 55-60%. * No regional wall motion abnormalities noted. Right Ventricle * The right ventricle is grossly normal size. * The right ventricular systolic function is normal as assessed by tricuspid annular plane systolic excursion (TAPSE) (normal >1.5 cm). Atria * The left atrial size is normal. * Right atrial size is normal. * No ASD detected; PFO is not assessed. Mitral Valve * The mitral valve is grossly normal. * There is no mitral valve stenosis. * There is trace mitral regurgitation. Tricuspid Valve * The tricuspid valve is not well visualized, but is grossly normal. * There is trace tricuspid regurgitation. Aortic Valve * The aortic valve opens well. * The aortic valve is trileaflet. * No hemodynamically significant valvular aortic stenosis. * Trace aortic regurgitation. Pulmonic Valve * The pulmonary valve is inadequately visualized, but the Doppler data is adequate for interpretation. * Pulmonic stenosis is absent. * There is no significant pulmonary regurgitation. Great Vessels * The aortic root and proximal ascending aorta are normal sized. Pericardium/Pleural * There is no pericardial effusion. Great Vessels * Normal inferior vena cava size and collapsability with sniff indicates a normal right atrial pressure of 3 mmHg * There is no evidence of pulmonary hypertension. The PA systolic pressure is less than 36 mmHg. MMode 2D Measurements and Calculations IVSd 0.97 cm IVSs 1.5 cm LVIDd 5.4 cm LVIDs 3.8 cm LVPWd 0.87 cm LVPWs 1.2 cm IVS/LVPW 1.1 FS 30.0 % EDV(Teich) 143.5 ml ESV(Teich) 62.1 ml EF(Teich) 56.7 % EDV(cubed) 160.6 ml ESV(cubed) 55.1 ml EF(cubed) 65.7 % % IVS thick 52.7 % % LVPW thick 44.1 % LV mass(C)d 187.5 grams LV mass(C)dI 86.8 grams/m\S\2 LV mass(C)s 187.6 grams LV mass(C)sI 86.8 grams/m\S\2 SV(Teich) 81.4 ml SI(Teich) 37.6 ml/m\S\2 SV(cubed) 105.6 ml SI(cubed) 48.8 ml/m\S\2 ACS 1.0 cm LVOT diam 1.9 cm LVOT area 2.8 cm\S\2 LVAd ap4 29.8 cm\S\2 LVLd ap4 9.1 cm EDV(MOD-sp4) 81.8 ml EDV(sp4-el) 83.1 ml LVAs ap4 16.6 cm\S\2 LVLs ap4 7.2 cm ESV(MOD-sp4) 33.0 ml ESV(sp4-el) 32.7 ml EF(MOD-sp4) 59.6 % EF(sp4-el) 60.7 % LVAd ap2 37.7 cm\S\2 LVLd ap2 9.0 cm EDV(MOD-sp2) 129.8 ml EDV(sp2-el) 134.7 ml LVAs ap2 21.8 cm\S\2 LVLs ap2 7.5 cm ESV(MOD-sp2) 54.6 ml ESV(sp2-el) 54.2 ml EF(MOD-sp2) 57.9 % EF(sp2-el) 59.7 % LVLd %diff -1.39 % EDV(MOD-bp) 102.8 ml LVLs %diff 3.8 % ESV(MOD-bp) 43.0 ml EF(MOD-bp) 58.1 % SV(MOD-sp4) 48.8 ml SI(MOD-sp4) 22.6 ml/m\S\2 SV(MOD-sp2) 75.1 ml SI(MOD-sp2) 34.8 ml/m\S\2 SV(MOD-bp) 59.7 ml SI(MOD-bp) 27.6 ml/m\S\2 SV(sp4-el) 50.4 ml SI(sp4-el) 23.3 ml/m\S\2 SV(sp2-el) 80.5 ml SI(sp2-el) 37.2 ml/m\S\2 Doppler Measurements and Calculations MV E max yari 97.8 cm/sec MV A max yari 84.6 cm/sec MV E/A 1.2 MV dec time 0.22 sec Ao V2 max 167.2 cm/sec Ao max PG 11.2 mmHg Ao max PG (full) 6.8 mmHg JARVIS(V,A) 1.8 cm\S\2 JARVIS(V,D) 1.8 cm\S\2 LV V1 max PG 4.3 mmHg LV V1 max 104.2 cm/sec PA V2 max 57.8 cm/sec PA max PG 1.3 mmHg
[2016-10-21] MEDS ORDERED: NiCARDipine HCL INJ 2.5 MG/ML 10 ML AMP ONE (16:58)
[2016-10-21] MEDS ORDERED: HEPARIN SOD (PORCINE) 1000 UNIT/ML 10 ML VIAL ONE (16:58)
[2016-10-21] MEDS ORDERED: FENTANYL CITRATE INJ 50 MCG/1 ML 2 ML VIAL ONE (16:58)
[2016-10-21] MEDS ORDERED: MIDAZOLAM HCL 1 MG/ML 2ML VIAL ONE (16:59)
[2016-10-21] MEDS ORDERED: NITROGLYCERIN/D5W 100MCG/ML 20ML SYR ONE (17:03)
--- NOTE | 2016-10-21 17:25 | Procedure Note ---
Pre-Mod Sedation Assessment General Date of Moderate Sedation: October 21, 2016. Vital Signs: Vital Signs Past 12 Hours Date Time Temp Pulse Resp B/P Pulse Ox O2 Delivery O2 Flow Rate FiO2 10/21/16 16:00 Room Air 10/21/16 16:00 36.8 74 18 132/ 96 10/21/16 12:01 36.8 79 18 111/73 96 10/21/16 12:00 Room Air 10/21/16 08:18 36.5 73 18 124/78 97 10/21/16 08:00 Room Air Review Cardiovascular: regular rate, rhythm, no edema Abdomen: normal bowel sounds, soft Lungs: chest non-tender, lungs clear Airway Class: II Pre-Sedation Airway Assessment Oral Cavity: WNL Able to Visualize Vocal Cords: No Short Thick Neck: No Hx of Sleep Apnea: No Smoking Status: Current Every Day Smoker Mallampati Classification: Class III ASA Classification: Class III Procedure Planning Contraindications-for Mod Sed: None Yes Notes The planned sedation has been discussed with the patient and consent obtained. I have identified the patient, determined the appropriateness of sedation and have assessed the patient immediately prior to the procedure. All medicine(s) and interventions are by my order.
--- NOTE | 2016-10-21 18:05 | Procedure Note ---
Post-Mod Sedation Assessment General Date of Moderate Sedation October 21, 2016. Vital Signs: Vital Signs Past 12 Hours Date Time Temp Pulse Resp B/P Pulse Ox O2 Delivery O2 Flow Rate FiO2 10/21/16 16:00 Room Air 10/21/16 16:00 36.8 74 18 132/ 96 10/21/16 12:01 36.8 79 18 111/73 96 10/21/16 12:00 Room Air 10/21/16 08:18 36.5 73 18 124/78 97 10/21/16 08:00 Room Air Review - Discharge Criteria Vital Signs Stable: Yes Alert/Oriented/Conversant: Yes Returned to Baseline Mental St: Yes Nausea Absent/Minimal: Yes Pain/Discomfort/Absent/Minimal: Yes Normal/Baseline Respirations: Yes Active Bleeding?: No Pt Received D/C Instructions: N/A Prescriptions Given: None Specific Proced. D/C Criteria Distal Pulses Present (Cardiac: Yes Groin site assessed-Card Cath: N/A Voided Prior To Discharge: N/A Discharged Patients Adult Escort/Transportation: Yes
[2016-10-21] MEDS ORDERED: SODIUM CHLORIDE 0.9% 1000ML 1,000 ML IV SCH (18:26)
[2016-10-21] MEDS ORDERED: CLOPIDOGREL BISULFATE 300 MG TAB PO STA (18:26)
--- NOTE | 2016-10-21 18:26 | Cardiac Catheterization ---
Procedure Note Procedure Date October 21, 2016. Pre-Procedure Diagnosis Non STEMI AUC Score 8 Post-Procedure Diagnosis Mild CAD Procedure(s) Performed Coronary Angiography, Left Heart Cath, LV Angiography Individual P[employer] Consultant Dr. 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 Normal LV function and intracardiac filling pressure Recommendations: Suspect troponin elevation due coronary vasospasm vs small vessel plaque rupture with transient obstruction vs demand ischemia in setting of moderate disease/microvascular dysfunction. Although no high risk disease, with KS, would recommend continuing ASA and starting plavix - load 300 mg on floor. Can discontinue heparin Continued ASCVD risk factor modification including high intensity statin Smoking cessation If stable overnight potential discharge tomorrow. Hemodynamics Rest Ao: 110/70/92 Final Ao: 125/86/104 LV: 125/18 Recommendations Medical therapy and/or Counseling Specimens None Radiation Exposure (mGy) 1670 Contrast (mls) 80 Visi Fluids (cc crystalloids) 50 Drains none Anesthesia moderate (17:28 - 17:56) Procedural Complication(s) None Disposition PCU ACC Data Cardiac Status Clinical evaluation leading to the procedure CAD Presntation: Non STEMI Anginal Classification: CCS III Heart Failure: No, NYHA Class: CCS I Cardiogenic Shock w/in 24Hrs: No Cardiac Arrest w/in 24Hrs: No Imaging studies past 6 months: Yes Stress studies past 6 months: No Standard Exercise Stress Test: No Stress Echocardiogram: No Stress Testing w/SPECT MPI: No Cardiac CTA: No Coronary Anatomy Dominant: Right LAD (% Stenosis): Mid (20) D1 (% Stenosis): Ostial (50-60) Circumflex (% Stenosis): Normal (Anomalous takeoff) RCA (% Stenosis): Normal Left Ventricular Angiography EF (%): 55 Mitral Regurgitation: 1+ Diagnostic Physician's Name: Rudolph Cardenas MD Closure Device Closure Device: StarClose, Radial Band Recommendations: Medical therapy and/or Counseling Intraprocedure Events Significant Dissection: No Perforation: No
[2016-10-22 00:01] VITALS: BP 132/82; PULSE 71; TEMP 36.8; O2SAT 97
[2016-10-22 03:57] VITALS: BP 121/81; PULSE 62; TEMP 36.4; O2SAT 98
[2016-10-22 05:16] LABS: HEMATOCRIT 42.8 % (42-52); MEAN CELL VOLUME 91.6 fL (80-100); MEAN CORPUSCULAR HEMOGLOBIN 30.8 pg (25-34); MEAN PLATELET VOLUME 9.3 fL (7.4-10.4); PLATELET COUNT 255 K/uL (130-400); RED BLOOD COUNT 4.67 M/uL (4.7-6.1); WHITE BLOOD COUNT 9.07 K/uL (4.8-10.8)
[2016-10-22 05:19] LABS: MEAN CORPUSCULAR HGB CONC 33.6 g/dl (32-36)
[2016-10-22 05:26] LABS: PARTIAL THROMBOPLASTIN RATIO 0.9; PROTHROMBIN TIME (PATIENT) 10.6 SECONDS (9.0-12.0)
[2016-10-22 05:46] LABS: MAGNESIUM 2.1 mg/dl (1.8-2.4); PHOSPHORUS 3.4 mg/dl (2.5-4.9); POTASSIUM 4.7 mmol/L (3.5-5.1)
[2016-10-22 07:43] VITALS: BP 132/87; PULSE 68; TEMP 36.7; O2SAT 97
[2016-10-22] MEDS: ATORVASTATIN 40 MG TAB PO SCH (08:04)
[2016-10-22] MEDS: METOPROLOL SUCC 25MG EXT REL TAB PO SCH (08:04)
[2016-10-22] MEDS: LISINOPRIL 5 MG TAB PO SCH (08:05)
[2016-10-22] MEDS ORDERED: ASPIRIN 81 MG ECTAB PO SCH (09:00)
[2016-10-22] MEDS ORDERED: CLOPIDOGREL BISULFATE 75 MG TAB PO SCH (09:00)
--- NOTE | 2016-10-22 09:26 | CARDIOLOGY PROGRESS NOTE ---
DATE: 10/22/2016 SUBJECTIVE: The patient was seen by me this morning in his telemetry unit room. He is feeling very well. Since admission, no further chest pain. No arm or jaw pain. He denies any pain in his right radial catheterization site. No right hand pain. No palpitations, lightheadedness, syncope, or peripheral edema. No leg pain. No dyspnea. No abdominal pain or nausea. No bleeding complaints. No skin rash complaints. No cerebrovascular or peripheral vascular complaints. No unusual myalgias or muscle weakness. CURRENT MEDICATIONS: Clopidogrel 75 mg daily, aspirin 81 mg daily, lisinopril 5 mg daily, metoprolol succinate ER 12.5 mg daily, and atorvastatin 80 mg daily. ALLERGIES: PENICILLINS. PHYSICAL EXAMINATION: GENERAL: The patient is sitting up in a chair by his bedside. No distress. VITAL SIGNS: Oral temperature this morning 36.7, pulse 68, and blood pressure 132/87. Pulse oximetry on room air is 97%. NECK: No jugular venous distention. LUNGS: Normal respiratory effort. Clear. No rales or wheezes. HEART: Regular rate and rhythm. S1 and S2 normal. No S3 or S4. No murmur or rub. ABDOMEN: Soft. Nontender. No palpable masses or organomegaly. No bruits. EXTREMITIES: Right radial catheterization site without tenderness or bleeding. Right radial pulse strongly palpable. No arterial insufficiency in the right hand. No pretibial edema. No calf tenderness. PULSES: Distal pulses are palpable in all extremities. NEUROLOGICAL: Alert and oriented x3. Motor grossly intact. PSYCHIATRIC: Affect is normal. DATA: Echocardiogram performed yesterday revealed normal LV systolic function and wall motion. No significant valvular abnormalities. Cardiac catheterization performed yesterday revealed a 50%-60% ostial LAD diagonal stenosis. Slightly decreased flow into the distal LAD. No significant atherosclerotic disease noted in the LAD itself. LV angiography with EF 55%. 1+ mitral regurgitation. LABORATORY DATA: Today, WBC 9.07, hemoglobin 14.4, hematocrit 42.8, and platelet count 255. Metabolic profile today with sodium 142, potassium 4.7, chloride 111, carbon dioxide 26, BUN 14, creatinine 1.0, random glucose 90 and magnesium 2.1. Peak troponin I was yesterday afternoon at 01:47 p.m. This was 1.640. Lipid profile with calculated LDL 139, total cholesterol 217, triglycerides 214, and HDL 35. Hemoglobin A1c 5.9. ASSESSMENT: 1. Status post non-ST elevation myocardial infarction. No segmental wall motion abnormalities on echocardiography or LV angiography. Suspect that the patient had transient decrease flow in his LAD diagonal. He had moderate atherosclerotic disease noted on angiography. He may have had an ulcerated plaque with associated thrombus, which had been cleared. 2. No anginal symptoms since admission. 3. No signs or symptoms of congestive heart failure. 4. No arrhythmias. 5. Mildly elevated blood pressure this morning. Blood pressures overnight were better than one this morning. 6. No vascular complications at the right radial catheterization site. 7. Coronary artery disease risk factors include family history of premature coronary artery disease, dyslipidemia, hypertension, and cigarette smoking. RECOMMENDATIONS: 1. Continue aspirin and clopidogrel. 2. Continue metoprolol and lisinopril. 3. Continue maximal atorvastatin. 4. Smoking cessation counseling. 5. Discharge home today. The patient was advised by me that he should not return to work until at least 10/27/2016. No lifting over 2 pounds with his right hand until at least October 24.
[2016-10-22] MEDS ORDERED: PLV75 PO (09:51)
[2016-10-22] MEDS ORDERED: TPRSR25 PO (09:52)
[2016-10-22] MEDS ORDERED: ASPEC81 PO (09:52)
[2016-10-22] MEDS ORDERED: LPT40 PO (09:52)
[2016-10-22] MEDS ORDERED: LSN5 PO (09:52)
--- NOTE | 2016-10-22 10:00 | Discharge Instructions ---
Discharge Instructions Date of Service October 22, 2016. Admission Reason for Admission: Chest Pain In Adult Discharge Discharge Diagnosis / Problem: NSTEMI Discharge Goals Goal(s): Improve disease control Activity Recommendations Activity Limitations: as noted below ACTIVITY RECOMMENDATIONS: Excess manipulation of the wrist should be avoided for the next 24-48 hours. * No lifting over 2 pounds (approximately a 1/2 gallon of milk) with the utilized arm for 24 hours. * No strenuous activity such as bowling or tennis for 3 days. * Keep the site of the procedure covered with a bandage for 24 hours. *You may shower the day after the procedure. Do not take a tub bath or submerge the puncture site in water for the next 3 days. *Do not operate any motorized equipment for 3 days. SPECIAL CARE INSTRUCTIONS: The site may be slightly bruised and sore following your procedure. Should any of the following occur, contact the Dr. who performed your procedure. 1. Redness/inflammation, swelling, chills, or fever, or colored drainage at procedure site within 3-7 days after your procedure. 2. Coldness, discoloration, ongoing numbness, severe pain, or swelling. Expect mild tingling of hand and tenderness at the puncture site for up to three days. If this persists beyond three days, or other symptoms develop, notify the Dr. who performed your procedure. BLEEDING: If the procedure site on your wrist begins to bleed, do not panic 1. Place 1 or 2 fingers firmly just slightly above the insertion site to stop the bleeding. You may be able to feel your pulse as you hold pressure. 2. Lift your finger after 5 minutes to see if the bleeding has stopped. 3. Once the bleeding has stopped, gently wipe the wrist area clean with a bandage. * If the bleeding from your wrist does not stop after 10 minutes, or if there is a large amount of bleeding or spurting, call 911 (do not drive yourself to the hospital). SKIN IRRITATION: * You may experience some redness and/or swelling in the area where radiation was administered. If any skin irritation occurs, please contact your family physician. FOLLOW UP VISIT: Keep any scheduled doctor appointments. . Instructions / Follow-Up Instructions / Follow-Up Follow up with Dr. Becerra in 1 to 2 weeks Follow up with family physician in 1 week. Home Care: * Take your medications exactly as directed. Don't skip doses. * Remember that recovery after a heart attack takes time. Plan to rest for at lease 4-8 weeks while you recover. Then return to normal activity when your doctor says it's okay. * Ask your doctor about joining a heart rehabilitation program. * Tell your doctor if you are feeling depressed. Feelings of sadness are common after a heart attack, but it is important that you speak to someone if you are feeling overwhelmed by these feelings. * If you are having chest pain, call 911 for an ambulance. Do NOT drive yourself to the hospital. * Ask your family members to learn CPR. * Learn to take your own blood pressure and pulse. Keep a record of your results. Ask your doctor when you should seek emergency medical attention. He or she will tell you which blood pressure reading is dangerous. Lifestyle Changes: * Maintain a healthy weight. Get help to lose any extra pounds. * Cut back on salt. * Limit canned, dried, packaged, and fast foods. * Don't add salt to your food. * Season foods with herbs instead of salt when you cook. * Break the smoking habit. Enroll in a stop-smoking program to improve your chances of success. * Limit fatty foods. * Check your lipid levels regularly. (Your doctor can show you how to do this.) * Build up your activity according to your doctor's recommendation. * Ask your doctor when it's okay to resume sexual activity. * Tell your doctor about any erectile dysfunction (ED) medication you are taking. Some ED medications are not safe if you take certain heart medications. * Try to manage stress. Follow Up: It is important for you to keep your follow up appointments with your medical provider. Current Hospital Diet Patient's current hospital diet: AHA Diet (Heart Healthy), Low Sodium Diet (2gm Na) Discharge Diet Recommended Diet: AHA Diet (Heart Healthy) Pending Studies Studies pending at discharge: no Laboratory Results Hemoglobin A1c Test 10/21/16 03:35 Range/Units Estimated Average Glucose 123 mg/dl Hemoglobin A1c 5.9 H 4.5-5.6 % Lipid Panel Test 10/21/16 03:35 Range/Units Triglycerides Level 214 H 0-150 mg/dl Cholesterol Level 217 H 0-200 mg/dl HDL Cholesterol 35 mg/dl Cholesterol/HDL Ratio 6.2 LDL Cholesterol, Calculated 139 mg/dl Medical Emergencies . Who to Call and When: Medical Emergencies: If at any time you feel your situation is an emergency, please call 911 immediately. Call 911 immediately or go to your nearest Emergency Room if you experience any of the following: Warning Signs and Symptoms of a Heart Attack * Chest pain that is not relieved by medication * Shortness of breath . Non-Emergent Contact Non-Emergency issues call your: Primary Care Provider . . "Provider Documentation" section prepared by Karen Atkins. . AMI Core Measures Reason no ASA as I/P: Treatment provided - N/A Reason no ASA at D/C: Treatment provided - N/A Reason no statin as I/P: Treatment provided - N/A Reason no statin at D/C: Treatment provided - N/A VTE Core Measure Inpt VTE Proph given/why not?: Unfractionated heparin SQ
[2016-10-22 10:01] VITALS: BP 132/87; PULSE 68; TEMP 36.7; O2SAT 97
--- NOTE | 2016-10-22 10:40 | Discharge Instructions ---
Discharge Instructions Admission Admission Date: October 21, 2016 at 04:52 Admission Diagnosis: Chest Pain In Adult. Discharge Care Plan - Problem: Medical Problems: (1) Elevated troponin (2) Exertional chest pain (3) Left sided chest pain Care Plan - Goal(s): Decrease discomfort Care Plan - Instructions: Recommended Home Diet: AHA Phase I (2gmNa/LoCho) Provider Instructions: Patient is not medically fit to return back to work until the 28 of October. He has been in [facility] from october 20 -october 22 VTE Core Measure Inpt VTE Proph given/why not?: Unfractionated heparin SQ Laboratory Results Test Results: Hemoglobin A1c Test 10/21/16 03:35 Range/Units Estimated Average Glucose 123 mg/dl Hemoglobin A1c 5.9 H 4.5-5.6 % Lipid Panel Test 10/21/16 03:35 Range/Units Triglycerides Level 214 H 0-150 mg/dl Cholesterol Level 217 H 0-200 mg/dl HDL Cholesterol 35 mg/dl Cholesterol/HDL Ratio 6.2 LDL Cholesterol, Calculated 139 mg/dl John Quintana Recommendations: Call your doctor if: * Temperature above 101 degrees * Pain not relieved by pain medicine ordered * There is increased drainage or redness from any incision * You have any unanswered questions or concerns. Your Doctors Instructions noted above were prepared by provider Jacob Cohen.
--- NOTE | 2016-10-22 10:53 | Discharge Summary ---
Discharge Summary Date of Service October 22, 2016. (Jacob Cohen MD) Discharge Summary Admission Date: October 21, 2016 at 04:52 Discharge Date: October 22, 2016 Discharge Disposition: Home Principal Diagnosis: NSTEMI Immunizations: History of Tetanus Vaccine?: YES,08/17/04 History of Pneumococcal: No History of Hepatitis B Vaccine: No Procedures: Cardiac Catheterization Consultations: Cardiology (Jacob Cohen MD) Principal Diagnosis: NSTEMI (Karen Atkins M.D.) Medication Reconciliation New Medications: Aspirin (Aspirin EC Low Dose) 81 Mg Ectab 81 MG PO QAM for 30 Days, #30 TAB Atorvastatin (Atorvastatin Calcium) 40 Mg Tab 80 MG PO QAM for 30 Days, #60 TAB Clopidogrel Bisulfate (Clopidogrel) 75 Mg Tab 75 MG PO QAM for 30 Days, #30 TAB Lisinopril (Lisinopril) 5 Mg Tab 5 MG PO QAM for 30 Days, #30 TAB Metoprolol Succinate (Metoprolol Succinate ER) 25 Mg Tabcr 12.5 MG PO QAM for 30 Days, #15 TAB Discharge Exam Patient with no acute events overnight He continues to be asymptomatic. He had a cardiac cath yesterday which did not show any large blockages in his coronary arteries Review of Systems: Constitutional: No chills, No fever, No sweats Respiratory: No cough, No dyspnea on exertion, No shortness of breath Cardiovascular: No PND, No chest pain, No edema, No orthopnea, No palpitations Abdomen: No constipation, No diarrhea, No nausea, No pain, No vomiting Physical Exam: General Appearance: WD/WN, no apparent distress Respiratory/Chest: chest non-tender, lungs clear, normal breath sounds, no respiratory distress Cardiovascular: regular rate, rhythm, no edema, no gallop, no JVD, normal peripheral pulses Extremities: normal inspection, no calf tenderness, normal capillary refill , no pedal edema, normal range of motion (Jacob Cohen MD) No further chest pain. Review of Systems: Constitutional: No fever Respiratory: No shortness of breath Cardiovascular: No chest pain Abdomen: No pain Physical Exam: General Appearance: no apparent distress Respiratory/Chest: lungs clear, no respiratory distress Cardiovascular: regular rate, rhythm Abdomen / GI: soft Neurologic/Psychiatric: alert, oriented x 3 Skin: warm/dry (Karen Atkins M.D.) Hospital Course This is a 51 yo m who presented to the ED with acute onset chest pain and right temporal pain. Patient with elevation in troponin, resolution of symptoms and normal EKG. Went for cardiac cath and found to have moderate LAD occlusion of 50 -60%. Chest pain NYD - troponin trend, last trop 1.45 - patient started on heparin - patient went for catheterization---> cath did not show any acute occlusion but did have moderate plaque in lad with 50-60% ostial LAD occlusion, echo did not show any wall motion abnormalities. Either coronary vasospasm or thrombus lodge that has been cleared - received NTG, morphine and ASA in the ED - patient to be discharged on aspirin, clopidogrel, statin, lisinopril and beta kylah - follow up with PCP early next week. Smoking cessation advised Hyperglycemia - HBA1C is 5.9 - patient does not visit PCP on a regular basis Total Time Spent: Less than 30 minutes This includes examination of the patient, discharge planning, medication reconciliation, and communication with other providers. (Jacob Cohen MD) I have reviewed the medical record and performed a history and physical examination of this patient today. I have discussed the case with Dr. Cohen. The above note reflects my findings, conclusions, and recommendations. Total Time Spent: Greater than 30 minutes (40) (Karen Atkins M.D.) Discharge Instructions Please refer to the electronic Patient Visit Report (Discharge Instructions) for additional information. (Jacob Cohen MD) Additional Copies To Rudolph Kim M.D.
== END 2016-10-22 10:54 | disposition home or self-care (01) | DRG 282 ==
LOC: ENRESERVTM → ENRESERVDT → C.EDB 18:11 → C.2T 21:07 → OBSVTOIN 10-21 04:52
PROVIDERS: ADMIT Hospitalist; ATTEND Family Medicine
PROC: B2111ZZ Fluoroscopy of Multiple Coronary Arteries using Low Osmolar Contrast (ICD-10-PCS; principal; 2016-10-21 17:36)
PROC: B2151ZZ Fluoroscopy of Left Heart using Low Osmolar Contrast (ICD-10-PCS; principal; 2016-10-21 17:36)
PROC: 4A023N7 Measurement of Cardiac Sampling and Pressure, Left Heart, Percutaneous Approach (ICD-10-PCS; principal; 2016-10-21 17:36)
DX: I21.4 Non-ST elevation (NSTEMI) myocardial infarction (principal); R73.9 Hyperglycemia, unspecified; R03.0 Elevated blood-pressure reading, without diagnosis of hypertension; F17.210 Nicotine dependence, cigarettes, uncomplicated; R51 Headache; Z82.49 Family history of ischemic heart disease and other diseases of the circulatory system

== ENCOUNTER → 2016-11-13 | Outpatient (CLI) | payer BC ==
[~2016-11-13] MED LIST: ASPEC81 PO; LPT40 PO; LSN5 PO; PLV75 PO; TPRSR25 PO
[2016-11-13 10:46] LABS: BLOOD UREA NITROGEN 15 mg/dl (7-18); BUN/CREATININE RATIO 17.6 (10-20); CALCIUM 8.4 mg/dl (8.5-10.1); CARBON DIOXIDE 26 mmol/L (21-32); CHLORIDE 106 mmol/L (98-107); CREATININE 0.87 mg/dl (0.60-1.40); GLUCOSE 92 mg/dl (70-99); POTASSIUM 4.2 mmol/L (3.5-5.1); SODIUM 138 mmol/L (136-145)
== END | disposition home or self-care (01) ==
LOC: C.LAB1850 09:27
PROVIDERS: ATTEND Internal Medicine
DX: I10 Essential (primary) hypertension (principal)

== ENCOUNTER → 2017-03-16 | Outpatient (CLI) | payer BC ==
[2017-03-16 12:18] LABS: BASO % 0.4 %; BASO ABS # 0.04 K/uL (0-0.2); COMPLETE YES; EOS % 2.8 %; HEMATOCRIT 46.3 % (42-52); IG% 0.2 %; LYMPH % 33.9 %; LYMPH ABS # 3.35 K/uL (1.2-3.4); MEAN CELL VOLUME 90.1 fL (80-100); MEAN CORPUSCULAR HEMOGLOBIN 31.7 pg (25-34); MEAN CORPUSCULAR HGB CONC 35.2 g/dl (32-36); MEAN PLATELET VOLUME 9.7 fL (7.4-10.4); MONO % 9.2 %; NEUT % 53.5 %; PLATELET COUNT 269 K/uL (130-400); RED BLOOD COUNT 5.14 M/uL (4.7-6.1); WHITE BLOOD COUNT 9.88 K/uL (4.8-10.8)
[2017-03-16 12:20] LABS: URINE APPEARANCE CLEAR (CLEAR); URINE BILIRUBIN NEG (NEG); URINE COLOR YELLOW; URINE EPITHELIAL CELL AUTO 0-5 /lpf (0-5); URINE NITRITE NEG (NEG); URINE SPECIFIC GRAVITY 1.021 (1.000-1.030); UROBILINOGEN NEG (NEG); ZZUR CULT IF INDIC CLEAN CATCH NO
[2017-03-16 12:25] LABS: MANUAL MICROSCOPIC REQUIRED? NO; REVIEW REQ? NO
[2017-03-16 12:27] LABS: ALT/SGPT 44 U/L (12-78); AST/SGOT 25 U/L (15-37); BLOOD UREA NITROGEN 14 mg/dl (7-18); BUN/CREATININE RATIO 14.1 (10-20); CALCIUM 8.6 mg/dl (8.5-10.1); CARBON DIOXIDE 24 mmol/L (21-32); CHLORIDE 106 mmol/L (98-107); CREATININE 0.99 mg/dl (0.60-1.40); GLUCOSE 98 mg/dl (70-99); HDL CHOLESTEROL 41 mg/dl; SODIUM 138 mmol/L (136-145)
[2017-03-16 12:39] LABS: ALB/GLOB RATIO 1.1 (0.9-2); ALKALINE PHOSPHATASE 80 U/L (45-117); CHOLESTEROL 151 mg/dl (0-200); CHOLESTEROL/HDL RATIO 3.7; LDL CHOLESTEROL CALCULATED 83 mg/dl; PROSTATE SPECIFIC ANTIGEN 0.803 ng/ml (0.000-4.000); TRIGLYCERIDES 136 mg/dl (0-150); VERY LOW DENSITY LIPOPROT CALC 27 mg/dl
--- NOTE | 2017-03-20 11:22 | CODING QUERY MEDICAL NECESSITY ---
SUPPORTING DIAGNOSIS NEEDED A supporting diagnosis is required for the test/procedure performed on this patient in order for us to be reimbursed by the patient's insurance. Please provide a supporting diagnosis for the following test/procedure listed below next to the test name along with your signature. *If there is no additional diagnosis for this patient that would support the following test/procedure please document that below next to the test/procedure. Test(s)/Procedure(s) that require a supporting diagnosis: * PSA DIAGNOSIS: Provider Signature: Date: Thank you Neeru Russell [employer] Once completed, please kindly fax back to [phone] For questions please call [phone]
== END | disposition home or self-care (01) ==
LOC: C.LAB1850 10:42
PROVIDERS: ATTEND Internal Medicine
DX: R53.83 Other fatigue (principal); Z13.6 Encounter for screening for cardiovascular disorders; E78.5 Hyperlipidemia, unspecified